=== PATIENT | male | born 1980 | race Caucasian/White ===

== ENCOUNTER → 2017-11-12 | Outpatient (CLI) | payer OTHER ==
[2017-11-12 12:51] LABS: BASOPHILS ABSOLUTE AUTO 0.12 K/mm3 (0.00-0.23); BASOPHILS PERCENT AUTO 1 % (0-2); EOSINOPHILS ABSOLUTE AUTO 0.47 K/mm3 (0.00-0.68); EOSINOPHILS PERCENT AUTO 4 % (0-6); Hematocrit 45.3 % (37.0-53.0); Hemoglobin 15.6 g/dL (13.5-17.5); IMMATURE GRAN ABSOLUTE AUTO 0.03 K/mm3 (0.00-0.10); IMMATURE GRAN PERCENT AUTO 0 % (0-1); LYMPHOCYTES ABSOLUTE AUTO 2.78 K/mm3 (0.84-5.20); LYMPHOCYTES PERCENT AUTO 25 % (21-46); MONOCYTES ABSOLUTE AUTO 0.79 K/mm3 (0.16-1.47); MONOCYTES PERCENT AUTO 7 % (4-13); Mean Corpuscular HGB 28.8 pg (26.0-34.0); Mean Corpuscular HGB Conc 34.4 g/dL (31.5-36.5); Mean Corpuscular Volume 84 fL (80-100); Mean Platelet Volume 10.3 fL (9.1-12.4); NEUTROPHILS ABSOLUTE AUTO 7.02 K/mm3 (1.96-9.15); NEUTROPHILS PERCENT AUTO 63 % (41-73); Platelet Count 332 K/mm3 (150-400); RDW Standard Deviation 39.4 fL (35.1-46.3); Red Blood Cell Count 5.41 M/mm3 (4.30-5.90); White Blood Cell Count 11.21 K/mm3 (4.00-11.30)
== END ==
LOC: LAB SHORT 12:45 → LAB EV 12:45
PROVIDERS: General Practice
DX: M10.9 Gout, unspecified (principal)
CPT/HCPCS: 84550; 85025; 85651

== ENCOUNTER → 2017-11-15 | Outpatient (CLI) | payer OTHER ==
[2017-11-15 12:37] LABS: Uric Acid, Urine 56.2 mg/dL (7.5-49.5)
== END | disposition home or self-care (01) ==
LOC: LAB EV 06:40
PROVIDERS: General Practice
DX: M10.9 Gout, unspecified (principal)
CPT/HCPCS: 81050; 84560

== ENCOUNTER 2018-01-23 14:48 | Inpatient (IN) | payer OTHER ==
[~2018-01-23] VITALS: Ht 177.8 cm; Wt 136.1 kg
== END 2018-01-23 18:52 | disposition home or self-care (01) | DRG 394 ==
LOC: ER 14:48 → SURS 17:15
PROVIDERS: Internal Medicine Gastroenterology
PROC: 0DD58ZX Extraction of Esophagus, Via Natural or Artificial Opening Endoscopic, Diagnostic (ICD-10-PCS; principal; 2018-01-23 17:30)
DX: T18.128A Food in esophagus causing other injury, initial encounter (principal); Z68.41 Body mass index [BMI] 40.0-44.9, adult; E66.01 Morbid (severe) obesity due to excess calories; J30.2 Other seasonal allergic rhinitis; K20.0 Eosinophilic esophagitis
CPT/HCPCS: 36415; J1610; J2060; J2250; J7120